=== PATIENT | male | born 1990 | race Caucasian/White ===

== ENCOUNTER 2018-10-03 15:37 | Emergency (ER) | payer BC ==
[~2018-10-03] VITALS: Ht 170.2 cm; Wt 113.6 kg
[2018-10-03 16:55] VITALS: BP 141/86
== END 2018-10-03 17:02 | disposition home or self-care (01) ==
LOC: EMS 15:39
DX: F41.9 Anxiety disorder, unspecified (principal); R09.81 Nasal congestion; G47.30 Sleep apnea, unspecified; I10 Essential (primary) hypertension

== ENCOUNTER 2020-04-03 08:32 | Emergency (ER) | payer BC ==
[~2020-04-03] VITALS: Ht 170.2 cm; Wt 121.8 kg
[2020-04-03 10:10] VITALS: BP 170/92
[2020-04-03 10:17] LABS: ANION GAP 10 mmol/L (8-16); CARBON DIOXIDE 26 mmol/L (22-29); CHLORIDE 101 mmol/L (98-107); GLOMERULAR FILTR. RATE CALC > 60 mL/min (>60); GLUCOSE,RANDOM 150 mg/dL (70-110); POTASSIUM 3.8 mmol/L (3.5-5.1); SODIUM SERUM 137 mmol/L (136-145); UREA NITROGEN, BLOOD 11 mg/dL (7-18)
[2020-04-03 10:21] LABS: BASOPHILS % (AUTO) 0.5 % (0.0-2.0); EOSINOPHILS % (AUTO) 1.1 % (1.0-6.0); HEMOGLOBIN 15.8 g/dL (13.5-17.5); LYMPHOCYTES # (AUTO) 1.9 K/uL (1.0-4.8); LYMPHOCYTES % (AUTO) 15.9 % (22.0-44.0); MEAN CORPUSCULAR HGB CONC 33.6 G/dL (31.0-37.0); MEAN CORPUSCULAR VOLUME 86 fL (80-100); MONOCYTES # (AUTO) 0.5 K/uL (0.1-1.0); MONOCYTES % (AUTO) 4.2 % (2.0-9.0); NEUTROPHILS # (AUTO) 9.3 K/uL (1.8-7.7); NEUTROPHILS % (AUTO) 78.3 % (40.0-70.0); PLATELET COUNT (AUTO) 221 K/uL (150-450); RED BLOOD CELL COUNT(AUTO) 5.45 MIL/uL (4.50-5.90); RED CELL DISTRIBUTION WIDTH 13.9 % (11.5-14.5)
[2020-04-03 10:23] LABS: ALANINE AMINOTRANSFERASE 124 U/L (12-78); ALKALINE PHOSPHATASE 121 U/L (46-116); ASPARTATE AMINOTRANSFERASE 55 U/L (15-37); BILIRUBIN,TOTAL 0.4 mg/dL (0.1-1.0); TOTAL PROTEIN, SERUM 7.9 g/dL (6.4-8.2)
== END 2020-04-03 11:03 | disposition home or self-care (01) ==
LOC: EMS 09:07
DX: R51.9 Headache, unspecified (principal); I10 Essential (primary) hypertension; F41.9 Anxiety disorder, unspecified
CPT/HCPCS: 93005; 99284

== ENCOUNTER 2020-04-06 19:43 | Emergency (ER) | payer BC ==
[~2020-04-06] VITALS: Ht 170.2 cm; Wt 120.5 kg
[2020-04-06] MEDS ORDERED: LORazepam 1 MG TABLET PO ONE (20:15)
[2020-04-06 21:33] VITALS: BP 127/65
== END 2020-04-06 21:41 | disposition home or self-care (01) ==
LOC: EMS 19:52
DX: I10 Essential (primary) hypertension (principal); R51.9 Headache, unspecified; F41.9 Anxiety disorder, unspecified; J32.9 Chronic sinusitis, unspecified
CPT/HCPCS: 99283